=== PATIENT | female | born 1935 | race Caucasian/White ===

== ENCOUNTER 2024-10-13 22:44 | Observation (INO) | payer OTHER, SELFPAY ==
[2024-10-13 16:27] VITALS: BP 162/70; BMI 28.3
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
[2024-10-13 17:24] LABS: Hematocrit 38.9 % (37.0-47.0); Hemoglobin 13.3 g/dL (12.0-16.0); Mean Corp Hgb Conc. 34.2 g/dL (33.0-37.0); Mean Corpuscular Volume 88.2 fL (81.0-99.0); Nucleated Red Blood Cells % 0 %; Platelet Count 158 10^3/uL (130-400); Red Cell Dist. Width 13.0 % (11.5-14.5)
[2024-10-13 17:35] LABS: ALT (SGPT) 26 U/L (0-35); AST (SGOT) 43 U/L (14-36); Albumin 4.1 g/dl (3.5-5.0); Alkaline Phosphatase 124 U/L (38-126); Blood Urea Nitrogen 18 mg/dl (7-17); Calcium 9.6 mg/dl (8.4-10.2); Carbon Dioxide 18 mmol/L (22-30); Chloride 109 mmol/L (98-107); Estimated Creatinine Clearance 63 ml/min; Glucose 193 mg/dl (70-99); Potassium 3.7 mmol/L (3.5-5.1); Sodium 139 mmol/L (135-145); Total Protein 6.9 g/dl (6.3-8.2); eGFR > 60.00
[2024-10-13] MEDS: NSS 500 IV (17:42)
[2024-10-13] MEDS: ZOFRAN 4 MG IV (17:43)
[2024-10-13 17:47] LABS: Troponin I 0.018 ng/ml
[2024-10-13 17:55] LABS: COVID-19 Antigen Negative (Negative)
[2024-10-13 20:11] LABS: Venous Blood Gas B.E. -5.3 mmol/L (-4 to +4); Venous Blood Gas O2 Sat % 83.9 %
[2024-10-13 20:36] VITALS: BP 110/62
[2024-10-13 20:40] LABS: Troponin I 0.044 ng/ml
[2024-10-13 20:41] LABS: Glucose - Point of Care 224 mg/dl (70-99)
[2024-10-13] MEDS: LOW STRENGTH ASPIRIN 324 MG PO (20:51)
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
[2024-10-13 23:34] VITALS: BP 125/63; BMI 28.6
--- NOTE | 2024-10-13 23:40 | PTCARENOTE ---
Pt admitted to 406-1 from ED. Ambulated with assist x 1 and RW. AAOx3 but forgetful at times. Bed alarm in place. VSS. Denies complaints of pain. Plan of care discussed. Call dee within reach.
[2024-10-14 02:45] LABS: Hematocrit 32.7 % (37.0-47.0); Hemoglobin 11.5 g/dL (12.0-16.0); Mean Corp Hgb Conc. 35.2 g/dL (33.0-37.0); Mean Corpuscular Volume 87.9 fL (81.0-99.0); Nucleated Red Blood Cells % 0 %; Platelet Count 141 10^3/uL (130-400); Red Cell Dist. Width 13.2 % (11.5-14.5)
[2024-10-14 03:01] LABS: AST (SGOT) 38 U/L (14-36); Albumin 3.5 g/dl (3.5-5.0); Alkaline Phosphatase 71 U/L (38-126); Blood Urea Nitrogen 17 mg/dl (7-17); Calcium 8.7 mg/dl (8.4-10.2); Carbon Dioxide 22 mmol/L (22-30); Chloride 108 mmol/L (98-107); Estimated Creatinine Clearance 53 ml/min; Glucose 226 mg/dl (70-99); HDL Cholesterol 48 mg/dl; LDL Cholesterol, Calculated 45 mg/dl; Magnesium 1.4 mg/dl (1.6-2.3); Potassium 4.1 mmol/L (3.5-5.1); Sodium 137 mmol/L (135-145); Total Protein 5.8 g/dl (6.3-8.2); Very Low Density Lipoprotein 28 mg/dl (0-30); eGFR > 60.00
[2024-10-14 03:11] LABS: Troponin I 0.067 ng/ml
[2024-10-14 03:17] LABS: ALT (SGPT) < 30 U/L (0-35)
[2024-10-14 03:45] VITALS: BP 99/63
--- NOTE | 2024-10-14 07:26 | W.PN.HOSP.TC ---
Today's Communication/Plan
-
See plan
Assessment / Plan
Assessment / Plan
Physical Exam
General: Comfortable and Conversant; No Pain, Fever, Chills, Poor Appetite or Slurred Speech
HEENT: NormoCephalic, Anicteric, Moist mucous membranes, Atraumatic, [place] Conjunctivae and No Ptosis
Respiratory: Clear; No Wheezes, Rales or Rhonchi
Cardiac: S1/S2 and Tachycardia (hr 101); No Murmur, Rub, Gallop or Peripheral Edema
Breast: Deferred by me
GI: Soft, Non Tender, Non Distended, Normal Bowel Sounds and No Hepatosplenomegaly
Rectal: Deferred by Provider
Genito-urinary: Deferred by me
Musculoskeletal: No Clubbing, No Cyanosis and No Edema
Skin: Warm, Dry and Rash
Neuro: AO x 3, No Motor Deficits, Nonfocal/grossly intact, Cranial Nerves Intact and No Sensory Deficits; No Slurred Speech, Facial Droop, Tremors or Sedated
Psych: Calm
Assessment/Plan
81-year-old female past medical history of hypertension, hyperlipidemia, diabetes, osteopenia, hypothyroidism, IBS and diarrhea/constipation, presented for acute onset of shakiness. She was watching TV while sitting on the couch, saw terrible news
on the TV and then started to have profound generalized shaking and dizziness, but she denied ever losing consciousness. The symptoms resolved after about 2 hours. Patient felt better after coming to the ER; patient's daughter also noticed that
during her episode, she was acting more slow than normal. Had vomiting prior to arrival after drinking lemonade that was left outside. Fatigued for few months and taking after naps. No chest pain or shortness of breath or fever or chills or
bodyaches. Initial labs showed acidosis with bicarb of 18 troponin 0.018 increased to 0.044. VBG showed mild metabolic acidosis with pH of 7.29, PCO2 of 44, bicarb of 21. EKG unremarkable. Concern for potential Takotsubo cardiomyopathy. IV fluids
were given. Aspirin given. Troponins trended. Echocardiogram was ordered. Cardiology consulted. Unclear etiology of non-anion gap acute metabolic acidosis.
#Generalized Shaking, Mild Confusion -- RESOLVED
-Suspected PNES or psychiatric-related stress from bad news
-Resolved
-No concern for true seizure
#Abnormal troponin of unclear etiology -- suspected acute, non-ischemic myocardial injury
- Echo showed mild hypokinesis of right ventricular free wall and dilated IVC. CT Chest PE showed no PE.
- Aspirin 324 mg asa 81 mg daily continue Lipitor 40 mg every afternoon
- Consult [facility] -- no DAPT or cath without any relevant cardiac symptoms
# Mild NAGMA metabolic acidosis - resolved
#History of chronic constipation/diarrhea
- IV NSS 500 cc bolus given in ER
- Follow BMP
- Metabolic acidosis was compensation for stressful event triggering hyperventilation?
#Constipation Tight Stools
- Bowel regimen
#DM 2
- Hold metformin
#HTN benign
BP 110/62
cont Lisinopril 20 mg daily with hold parameters
Continue bisoprolol/HCTZ
#HLD
Continue Lipitor 40 mg every afternoon
#Overactive bladder
Continue oxybutynin 5 mg daily
DVT prophylaxis
SCDs. Heparin subq
DNR per patient
On 10/14/24, I spoke extensively to patient's family, and I answered all of their questions and concerns to satisfaction.
Anticipated Discharge: 24 - 48 hours
Subjective/Interval History
-
Date of Service: October 14, 2024
Patient was seen and examined. She reported feeling back to normal, denied any symptoms or complaints.
Objective Data
-
Labs:
Laboratory Results
10/14/24
02:12
WBC 17.7 H
Hgb 11.5 L
Hct 32.7 L
Plt Count 141
Sodium 137
Potassium 4.1
Chloride 108 H
Carbon Dioxide 22
BUN 17
Creatinine 0.7
Glucose 226 H
Calcium 8.7
Total Bilirubin 1.2
AST 38 H
ALT < 30
Alkaline Phosphatase 71
Vital Signs:
Vital Signs
Temp Pulse Resp BP Pulse Ox
98.1 F 75 18 99/63 97
10/14/24 03:45 10/14/24 03:45 10/14/24 03:45 10/14/24 03:45 10/14/24 03:45
I&O
10/13/24 10/14/24 10/15/24
06:59 06:59 06:59
Intake Total 240 / 240
Balance 240 / 240
[2024-10-14 08:10] VITALS: BP 126/56
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
[2024-10-14] MEDS: VITAMIN D3 (cholecalciferol) 50 MCG PO (08:55)
[2024-10-14] MEDS: DITROPAN 5 MG PO (08:55)
[2024-10-14] MEDS: ZESTRIL 20 MG PO (08:55)
[2024-10-14] MEDS: HEPARIN 5000 UNITS SC ×2 (08:55→21:42)
[2024-10-14 09:03] LABS: B.E. -3.2 mmol/L; HCO3 21.2 mmol/L (21-28); O2 Saturation % 98.8 % (94-98); PCO2 35 mmHg (32-35); PO2 92 mmHg (83-108)
[2024-10-14 09:31] LABS: Troponin I 0.552 ng/ml
[2024-10-14] MEDS: MAGNESIUM SULFATE 50 IV (10:20)
--- NOTE | 2024-10-14 10:41 | CM ---
Patient seen bedside w/ family, initial assessment completed. Patient is a 89-year-old female, presented following shaking after seeing shooting on television. On room air.
Patient resides w/ spouse in a 3 story split level home, 12 steps to enter from the outside. Patient is independent w/ the use of cane and RW, has grab bar in the tub. Independent w/ ADLs. Denies SNF/HC hx.
Address, point of contact and insurance verified
PCP: Song Lopez
Pharmacy: [facility]
Patient admitted obs status. MADERA form verbally reviewed, copy provided, copy on chart
Daughter, Kristine, requested to be added as additional contact. Updated Chastity/Admissions
Plan: Anticipate home, no needs
[2024-10-14 11:54] VITALS: BP 112/63
[2024-10-14 15:41] LABS: Troponin I 0.530 ng/ml
[2024-10-14 16:00] VITALS: BP 123/58
[2024-10-14 17:09] LABS: Glucose - Point of Care 217 mg/dl (70-99)
[2024-10-14] MEDS: LIPITOR 40 MG PO (17:21)
[2024-10-14] MEDS: NOVOLOG FLEXPEN-LOW RESISTANCE 2 UNITS SC (17:25)
[2024-10-14 19:19] VITALS: BP 103/66
[2024-10-14 21:20] LABS: Troponin I 0.346 ng/ml
[2024-10-14 21:24] LABS: Glucose - Point of Care 187 mg/dl (70-99)
[2024-10-14] MEDS: BENADRYL 50 MG PO (21:42)
[2024-10-14] MEDS: TYLENOL 1000 MG PO (21:42)
[2024-10-14 23:08] VITALS: BP 150/69
[2024-10-15 03:25] VITALS: BP 140/71
[2024-10-15 06:42] LABS: ALT (SGPT) 24 U/L (0-35); AST (SGOT) 41 U/L (14-36); Albumin 3.2 g/dl (3.5-5.0); Alkaline Phosphatase 76 U/L (38-126); Blood Urea Nitrogen 18 mg/dl (7-17); Calcium 9.1 mg/dl (8.4-10.2); Carbon Dioxide 27 mmol/L (22-30); Chloride 109 mmol/L (98-107); Estimated Creatinine Clearance 62 ml/min; Glucose 152 mg/dl (70-99); Magnesium 2.2 mg/dl (1.6-2.3); Potassium 4.2 mmol/L (3.5-5.1); Sodium 140 mmol/L (135-145); Total Protein 5.7 g/dl (6.3-8.2); eGFR > 60.00
[2024-10-15 06:53] LABS: Troponin I 0.205 ng/ml
[2024-10-15 07:06] LABS: Hematocrit 31.2 % (37.0-47.0); Hemoglobin 10.7 g/dL (12.0-16.0); Mean Corp Hgb Conc. 34.3 g/dL (33.0-37.0); Mean Corpuscular Volume 88.4 fL (81.0-99.0); Nucleated Red Blood Cells % 0 %; Platelet Count 137 10^3/uL (130-400); Red Cell Dist. Width 13.3 % (11.5-14.5)
[2024-10-15 07:20] VITALS: BP 141/61
[2024-10-15 07:24] LABS: Glucose - Point of Care 169 mg/dl (70-99)
--- NOTE | 2024-10-15 07:41 | W.PN.HOSP.TC ---
Today's Communication/Plan
-
Discharge today
Assessment / Plan
Assessment / Plan
Physical Exam
General: Not in acute distress
HEENT: Normocephalic, Moist mucous membranes, Atraumatic
Respiratory: Clear to Auscultation Bilaterally
Cardiac: S1/S2 and RRR
GI: Soft, Non Tender, Non Distended, Normal Bowel Sounds
Musculoskeletal: No Cyanosis and No Edema
Skin: Warm. Dry.
Neuro: AAO x 3, No Motor Deficits, Nonfocal/grossly intact, Cranial Nerves Intact and No Sensory Deficits
Psych: Calm
Assessment/Plan
81-year-old female past medical history of hypertension, hyperlipidemia, diabetes, osteopenia, hypothyroidism, IBS and diarrhea/constipation, presented for acute onset of shakiness. She was watching TV while sitting on the couch, saw terrible news
on the TV and then started to have profound generalized shaking and dizziness, but she denied ever losing consciousness. The symptoms resolved after about 2 hours. Patient felt better after coming to the ER; patient's daughter also noticed that
during her episode, she was acting more slow than normal. Had vomiting prior to arrival after drinking lemonade that was left outside. Fatigued for few months and taking after naps. No chest pain or shortness of breath or fever or chills or
bodyaches. Initial labs showed acidosis with bicarb of 18 troponin 0.018 increased to 0.044. VBG showed mild metabolic acidosis with pH of 7.29, PCO2 of 44, bicarb of 21. EKG unremarkable. Concern for potential Takotsubo cardiomyopathy. IV fluids
were given. Aspirin given. Troponins trended. Echocardiogram was ordered. Cardiology consulted. Unclear etiology of non-anion gap acute metabolic acidosis.
#Generalized Shaking, Mild Confusion -- RESOLVED
-Suspected PNES or psychiatric-related stress from bad news
-Resolved
-No concern for true seizure
#Abnormal troponin of unclear etiology -- suspected acute, non-ischemic myocardial injury
- Echo showed mild hypokinesis of right ventricular free wall and dilated IVC. CT Chest PE showed no PE.
- Aspirin 324 mg asa 81 mg daily continue Lipitor 40 mg every afternoon
- Consult [facility]ology -- no DAPT or cath without any relevant cardiac symptoms
#Mild NAGMA metabolic acidosis - resolved
#History of chronic constipation/diarrhea
- IV NSS 500 cc bolus given in ER
- Follow BMP
- Metabolic acidosis was attempt at compensation for stressful event triggering hyperventilation? Unlikely to be Metformin and no diarrhea reported.
#Constipation Tight Stools
- Bowel regimen
#Type 2 Diabetes Mellitus
- Resume Metformin -- Metformin could cause a lactic acidosis which can cause AGMA (anion gap metabolic acidosis), not NAGMA -- patient is ADAMANT she wants to continue Metformin on discharge, and given that it is unlikely Metformin caused her
acidosis and patient will follow-up closely with repeat labs next week, resume Metformin on discharge
#Hypertension
BP 110/62
cont Lisinopril 20 mg daily with hold parameters
Continue bisoprolol/HCTZ
Consider sleep study as outpatient but doesnt ever want to be on cpap
#First Degree Heart Block
-Recheck EKG outpatient as patient on beta ernesto
#HLD
Continue Lipitor 40 mg every afternoon
#Overactive bladder
Continue oxybutynin 5 mg daily
DVT prophylaxis
SCDs. Heparin subq
DNR per patient
On 10/14/24, I spoke extensively to patient's family, and I answered all of their questions and concerns to satisfaction.
More than 30 minutes spent in discharge including
Final examination of the patient
Summarizing hospital stay
Instructions for continuing care to all relevant caregivers
Preparation of discharge records, prescriptions, and referral forms
Total time spent (in minutes): 39
Anticipated Discharge: Today
Subjective/Interval History
-
Date of Service: October 15, 2024
Patient was seen and examined. She denied any chest pain, shortness of breath or any other symptoms or complaints. She reports feeling well and is looking forward to going home today.
Objective Data
-
Labs:
Laboratory Results
10/15/24
05:59
WBC 12.4 H
Hgb 10.7 L
Hct 31.2 L
Plt Count 137
Sodium 140
Potassium 4.2
Chloride 109 H
Carbon Dioxide 27
BUN 18 H
Creatinine 0.6
Glucose 152 H
Calcium 9.1
Total Bilirubin 0.9
AST 41 H
ALT 24
Alkaline Phosphatase 76
Vital Signs:
Vital Signs
Temp Pulse Resp BP Pulse Ox
98.2 F 79 18 140/71 95
10/15/24 03:25 10/15/24 03:25 10/15/24 03:25 10/15/24 03:25 10/15/24 03:25
I&O
10/14/24 10/15/24 10/16/24
06:59 06:59 06:59
Intake Total 240 / 240
Balance 240 / 240
[2024-10-15] MEDS: HEPARIN SC (08:39)
[2024-10-15] MEDS: ZESTRIL 20 MG PO (08:39)
[2024-10-15] MEDS: VITAMIN D3 (cholecalciferol) 50 MCG PO (08:39)
[2024-10-15] MEDS: NOVOLOG FLEXPEN-LOW RESISTANCE 1 UNITS SC (08:39)
[2024-10-15] MEDS: DITROPAN 5 MG PO (08:39)
[2024-10-15 11:36] VITALS: BP 125/88; PULSE 76; O2SAT 98
[2024-10-15 11:50] LABS: Glucose - Point of Care 374 mg/dl (70-99)
[2024-10-15 12:49] VITALS: BP 146/75
[2024-10-15] MEDS: NOVOLOG FLEXPEN-LOW RESISTANCE 5 UNITS SC (12:52)
--- NOTE | 2024-10-15 13:45 | PN.DE.MGMTRT ---
Insulin Management
- -
10/15/2024: Diabetes Management Consult
89 year old female with HTN, HLD, and DM2 who was watching the news yesterday AM and saw an event that really upset her. She started shaking uncontrollably for about 2 hours. Her family called EMS. She denies any CP or SOB. She also has
leukocytosis. She denies any fever or chills. She has generally been fatigued.
Pt awake, alert, oriented, sitting up in chair, offers no complaints, able to discuss diabetes hx and care plan
Diabetes consult was requested for single elevation of glucose to 374 after consuming orange juice and a fruit cup at lunch time.
Otherwise her glucose has been in acceptable range for age. HS glucose was 187, FBG 169 this AM.
Pt reports that she has had diabetes for a long time and sees her PCP for routine diabetes care. 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
States she tests her blood sugar once a day in AM and its usually in range of 130-140
On admission, she was noted for mild acidosis and her Metformin was placed on hold. No updated A1C and none was ordered, Cr 0.6, eGFR >60
Pt states that she is very good at choosing the right foods to keep her blood sugar down at home. States reason she ordered juice and a fruit cup is because she did not have many choices on the menu and she wasn't too hungry at the time.
Reports that she doesn't buy or drink juice at home and that she generally eats low sugar fruits, avoids breads and potatoes.
Given pt's advanced age of 89 years, would avoid any complex regimen, especially insulin and sulfonylureas that can put her at risk for hypoglycemia.
Will defer starting any new diabetes medications to Pt's PCP since her blood sugar has been in acceptable range and elevation in glucose was a result of [place] juice and fruit cap.
Will update A1C
Diabetes History
- -
Type of Diabetes: 2
Pre-Admission Diabetes Regimen
10/15/24
05:59
Creatinine 0.6
Insulin Pump Settings
IP Diabetes Regimen
10/14/24 10/14/24 10/15/24
17:07 21:22 05:59
Glucose 152 H
POC Glucose 217 H 187 H
10/15/24 10/15/24
07:22 11:48
Glucose
POC Glucose 169 H 374 H
Patient Education
--- NOTE | 2024-10-15 13:55 | W.PN.CD ---
Today's Communication / Plan
-
no further recommendations
ok to discharge from cardiac perspective
Impression / Plan
-
Abnormal troponin ins the setting of possible acute htn?:
-unclear, no cp,sob or ecg changes, but given age and stable course, will avoid further evaluation as per family and patient wishes.
RV hypokinesis:
-echo with mild rv hypokinesis--CTPE done ruled out pe
-recommended op sleep study, she isn't interested.
-no s/sx of chf, will follow up with pcp and can see cardiology as needed
Leukocytosis:
-w/u and management per primary team
-denies fever/chills
HTN:
-continue meds and monitor
HLD:
-continue statin
DM2:
-on medical therapy
Physical Exam
Vital Signs/Labs
Vital Signs
Temp Pulse Resp BP Pulse Ox
97.3 F 75 18 146/75 95
10/15/24 12:49 10/15/24 12:49 10/15/24 12:49 10/15/24 12:49 10/15/24 12:49
10/14/24 10/15/24 10/16/24
06:59 06:59 06:59
Actual Weight 161 lb 8 oz
10/15/24 05:59
10/15/24 05:59
Magnesium 2.2 mg/dl (1.6-2.3) 10/15/24 05:59
Triglycerides 144 mg/dl (10-149) 10/14/24 02:12
LDL Cholesterol, Calc 45 mg/dl 10/14/24 02:12
VLDL Cholesterol, Calc 28 mg/dl (0-30) 10/14/24 02:12
HDL Cholesterol 48 mg/dl 10/14/24 02:12
LAB Results
10/13/24 10/13/24 10/14/24
17:07 20:01 02:12
Troponin I 0.018 0.044 H* D 0.067 H* D
10/14/24 10/14/24 10/14/24
08:53 15:03 20:33
Troponin I 0.552 H* D 0.530 H* 0.346 H* D
10/15/24 10/15/24 10/15/24
05:59 12:00 18:00
Troponin I 0.205 H* Cancelled Cancelled
Physical Exam
Constitutional: No acute distress
Cardiovascular: Rhythm & rate is regular, Pedal edema is absent, JVD pressure is normal, Systolic murmur absent and Diastolic murmur absent
Respiratory: Respiratory effort normal, Lungs clear to auscul., Wheeze Absent, Crackles Absent and Rhonchi Absent
Neuro/Psych: AO x 3
Data Reviewed
-
Date of Service: October 15, 2024
EKG: Other (tele sinus)
--- NOTE | 2024-10-15 15:23 | W.DCSUMMARY ---
Discharge Summary
Discharge Data
Date of Admission: 10/13/24
Date of Discharge: 10/15/24
Total time spent discharging patient (in min): 39
-
Pending Results: No
Hospital Course
81-year-old female with past medical history of hypertension, hyperlipidemia, diabetes mellitus, osteopenia, hypothyroidism and IBS, presented for acute onset of shakiness. She was watching very bad news on TV when she started to feel profoundly
shaky and dizzy. Patient's daughter noted that patient was acting more slowly than normal. Patient also had vomiting prior to arrival after drinking lemonade that was left outside. She also had been fatigued for few months and taking after naps.
She denied having any chest pain or shortness of breath or fever or chills or bodyaches. Patient did not lose consciousness during her episode. Labs show acidosis with bicarb of 18 and elevated troponin. VBG shows mild metabolic acidosis with pH of
7.29, PCO2 of 44, bicarb of 21. EKG unremarkable. Patient received intravenous fluids. Aspirin was given. Cardiology was consulted. Patient's Metformin was held. ABG next day showed pH of 7.39, PCO2 of 35, bicarb of 21.2. It was thought patient's
symptoms were due to stress from watching the bad news on TV. Patient was suspected to have PNES or psychiatric-related stress from bad news. Patient's acidosis resolved, bicarb in the BMP labs came into the normal range. Echocardiogram showed mild
hypokinesis of the right ventricular free wall and dilated IVC. CT Chest was done to check for pulmonary embolism, and it showed no pulmonary embolism. Patient was later found to be doing well, with plan for close outpatient follow-up with her
outpatient providers.
Discharge Plan
-
Patient Disposition: Home (Routine Discharge)
Discharge Diagnosis/Procedures: #Leukocytosis -- no signs or symptoms of infection -- suspected secondary to physical stress -- IMPROVING SIGNIFICANTLY
#Right Ventricular hypokinesis
#Generalized Shaking, Mild Confusion -- RESOLVED
#Abnormal troponin of unclear etiology -- suspected acute, non-ischemic myocardial injury
#Mild Non Anion Gap metabolic acidosis - resolved
#History of chronic constipation/diarrhea
#Constipation Tight Stools
#Type 2 Diabetes Mellitus
#Hypertension
#First Degree Heart Block
#Hyperlipidemia
#Overactive bladder

Chest X-Ray Results (as per radiologist's report):
'FINDINGS: Linear densities are present within both lower lungs, compatible with linear atelectasis and/or scarring. There is no evidence of consolidation that would be considered highly suggestive of pneumonia.
Cardiac silhouette size is within normal limits with no evidence for pulmonary edema or pleural effusion.
IMPRESSION:
Linear densities present within both lower lungs, compatible with linear atelectasis and/or scarring. No evidence for consolidation that would be considered highly suggestive of pneumonia.'

CT angiography of the chest, pulmonary embolism protocol - results (as per radiologist's report):
'COMPARISON: Chest radiograph of October 13, 2024. No previous CT of the chest is available.
FINDINGS: Intravenous contrast-enhanced CT angiography of the chest is performed with protocol designed for evaluation for pulmonary embolism. Source axial images are reviewed as well as 3-D volume and multiplanar reconstructions. Automatic
exposure control radiation dose reduction technology was utilized.
Respiratory motion artifact limits evaluation of the inferior subsegmental pulmonary arteries. Given this limitation, there is no evidence for pulmonary embolism. The main pulmonary artery is not enlarged.
There is mild to moderate calcification of the thoracic aorta with no evidence for aneurysm or dissection.
Coronary artery calcifications and/or stents are present. Please correlate with symptoms of and risk factors for coronary artery disease, with further workup as clinically appropriate.
Minimal calcification of the aortic valve is present.
Enlargement and heterogeneity of the thyroid, including scattered calcifications bilaterally. An 89-year-old, this is likely a benign multinodular goiter, and no further imaging follow-up is recommended.
There are no significantly enlarged mediastinal, hilar, or axillary lymph nodes.
There is a minimal amount of posteromedial right pleural fluid with no significant left pleural fluid. There is no significant pericardial effusion.
Linear densities are present within both lower lungs, appearance highly suggestive of atelectasis. No evidence of consolidative parenchymal opacity suggest pneumonia.
No convincing evidence for pulmonary edema pattern.
In the visualized upper abdomen, fatty infiltration of the liver. There is a 1 cm dystrophic calcification along the posterior margin of the lateral segment.
Minimal levoconvex scoliosis of the upper thoracic spine with mild dextroconvex scoliosis centered in the mid to lower thoracic spine. Mild to moderate diffuse changes of degenerative disc disease.
Incidental note is made of tortuosity of the proximal left common carotid artery which extends posterior to the esophagus in the region of the thoracic inlet.
IMPRESSION: Examination is negative for pulmonary embolism.
Minimal posteromedial right pleural fluid.
Linear densities within both lower lungs, likely representing linear atelectasis.
Fatty infiltration of the liver.
Incidental note of tortuosity of the proximal left common carotid artery, extending posterior to the esophagus in the region of the thoracic inlet, best seen on image 13 of series 501.'

Echocardiogram Summary (as per air brake man's report):
'SUMMARY
1. Normal left ventricular size, wall thickness and systolic function. No regional wall motion abnormalities are seen.
2. Mildly reduced systolic function of the right ventricle free wall with apical sparing.
3. Aortic sclerosis without stenosis.
4. Mild pulmonary hypertension.
5. No prior study available for comparison.'
Condition: Good
Diet: Low Fat, Low Sodium, 2 Gram Sodium and Diabetic, Carb Controlled
Activity: As tolerated
Blood Work: CBC, CMP and Magnesium in 4 to 5 days with your primary care provider's office
Activity Restrictions/Additional Instructions:
Consider sleep study as outpatient for sleep apnea, as discussed.
Metformin going forward: There was a question of whether Metformin resulted in acidosis (which has since resolved since being in hospital). Probably best thing would be is to keep a very strict diabetic diet, hold Metformin for now, recheck your
labwork within the next 5 days with your primary care provider, possibly resuming the Metformin at that time, and then rechecking your labs a few days after that to make sure you do not develop lactic acidosis or any other side effects of Metformin.
Bisoprolol/Hydrochlorothiazide going forward: Given the symptoms you had shortly before coming to the hospital, you are advised to hold off on taking this medication until you follow-up with your PCP outpatient to see whether you can take
Bisoprolol, Hydrochlorothiazide or both -- to make sure your blood pressure does not become low. Your blood pressure has been fairly well-controlled while only being on Lisinopril in the hospital. Please check your blood pressure at home at least
three times per day.
Instructions: Metformin, Diabetes and diet, Checking your blood pressure at home, DASH diet, High blood sugar in adults - ED ([facility])
Referrals:
Song Lopez MD [Family Provider, Family Practice] - in less than 1 week
Referral Note: Hospitalization Follow-Up
Additional Discharge Medication Instructions: Continue over the counter bowel regimen (i.e. Miralax, Senokot-S) to address tight stools and constipation.
Prescriptions:
Continued
atorvastatin [Lipitor] 40 mg Tablet
40 mg PO QPM
lisinopril 20 mg Tablet
20 mg PO DAILY
oxybutynin chloride 5 mg Tablet Extended Release 24hr
5 mg PO DAILY
diphenhydramine-acetaminophen [Acetaminophen PM] 25-500 mg Tablet
2 tab PO HS
cholecalciferol (vitamin D3) [Vitamin D3] 50 mcg (2,000 unit) Capsule
50 mcg PO DAILY
Held
bisoprolol-hydrochlorothiazide 2.5-6.25 mg Tablet
1 tab PO DAILY
Hold Instructions: Resume on 10/29/24. Discuss with your primary care provider before deciding to resume this medication.
metformin 500 mg Tablet Extended Release 24 Hr
1,000 mg PO BID
Hold Instructions: Resume on 10/22/24. Check with your doctor if and when you should resume this medication.
Discharge Orders:
Discharge Patient (As Directed); Ordered 10/15/24
Ordered By: Garcia Wilkinson
Discharge Date and Time
Discharge Date/Time: 10/15/24 16:27
Print Language: CANADIAN
[2024-10-15 15:25] VITALS: BP 158/75
[2024-10-16 08:54] LABS: Glycohemoglobin (HgbA1c) 7.3 % (4.0-5.6)
== END 2024-10-15 16:27 | disposition home or self-care (01) ==
LOC: 4 EAST ACU 22:44
PROVIDERS: Clinical Nurse Specialist Family Health; Physician Assistant; ADMITTING PHYSICIAN Hospitalist; ATTENDING PHYSICIAN Hospitalist; CONSULT PHYSICIAN Internal Medicine Cardiovascular Disease; EMERGENCY PHYSICIAN Student in an Organized Health Care Education/Training Program; FAMILY PHYSICIAN Family Medicine
DX: F43.0 Acute stress reaction (principal); E78.00 Pure hypercholesterolemia, unspecified; I10 Essential (primary) hypertension; E11.9 Type 2 diabetes mellitus without complications; E03.9 Hypothyroidism, unspecified; R79.89 Other specified abnormal findings of blood chemistry; I44.0 Atrioventricular block, first degree; M85.80 Other specified disorders of bone density and structure, unspecified site; E87.21 Acute metabolic acidosis; N32.81 Overactive bladder; K58.2 Mixed irritable bowel syndrome; Z66 Do not resuscitate; Z11.52 Encounter for screening for COVID-19; Z79.84 Long term (current) use of oral hypoglycemic drugs; Z79.899 Other long term (current) drug therapy
CPT/HCPCS: 36600; 70450; 71046; 71275; 80053; 80061; 82805; 82962; 83036; 83735; 84484; 85025; 87502; 87811; 93005; 93306; 96361; 96374; 97163; 99285; G0378; Q9967